=== PATIENT | female | born 1965 ===

== ENCOUNTER 2016-09-10 07:06 | Emergency (ER) | payer OTHER ==
[2016-09-10 07:16] VITALS: O2SAT 98
[2016-09-10 07:17] VITALS: BMI 28.8
--- NOTE | 2016-09-10 08:22 | ED PDOC ---
HPI: General Adult Time Seen by Provider: 09/10/16 07:39 Chief Complaint (Nursing): Back Pain Chief Complaint (Provider): back pain History Per: Patient History/Exam Limitations: no limitations Additional Complaint(s): 51yo [place]/ [place] [facility] [place] initially complaining of pain consistent with previous hemorrhoid for 1 week. Patient then shows an Rx from early August 2016 for outpatient lumbar XRs and is requesting MRI. Past Medical History Reviewed: Historical Data, Nursing Documentation, Vital Signs Vital Signs: Last Vital Signs Temp 97.9 F 09/10/16 12:30 Pulse 75 09/10/16 12:30 Resp 14 09/10/16 12:30 BP 122/74 09/10/16 12:30 Pulse Ox 98 09/10/16 16:26 - Medical History PMH: Asthma, Diabetes Denies: Chronic Kidney Disease - Surgical History Surgical History: Appendectomy Other surgeries: hemorrhoidectomy - Family History Family History: States: Unknown Family Hx - Social History Current smoker - smoking cessation education provided: No Drugs: Denies - Immunization History Hx Tetanus Toxoid Vaccination: No Hx Influenza Vaccination: No Hx Pneumococcal Vaccination: No - Home Medications Home Medications: Ambulatory Orders Medication Instructions Recorded MetFORMIN 500 mg PO BID 04/30/13 Vitamin D2 2,000 iu PO DAILY 04/30/13 Naproxen [Naprosyn] 500 mg PO BID PRN #20 tablet 11/21/15 Cyclobenzaprine [Cyclobenzaprine 10 mg PO BID #15 tab 03/07/16 HCl] Albuterol HFA [Ventolin HFA 90 1 - 2 puff IH Q4H PRN #1 bottle 04/01/16 mcg/actuation (8 g)] Docusate Sodium [Colace] 100 mg PO BID PRN #10 capsule 09/10/16 - Allergies Allergies/Adverse Reactions: Allergies Allergy/AdvReac Type Severity Reaction Status Date / Time acetaminophen [From Tylenol] Allergy RASH Verified 03/06/16 16:54 Penicillins Allergy RASH Verified 03/06/16 16:54 Review of Systems ROS Statement: Except As Marked, All Systems Reviewed And Found Negative Gastrointestinal: Positive for: Constipation Musculoskeletal: Positive for: Back Pain Physical Exam - Reviewed Nursing Documentation Reviewed: Yes Vital Signs Reviewed: Yes - Physical Exam Appears: Positive for: Well, Non-toxic, No Acute Distress Head Exam: Positive for: ATRAUMATIC, NORMAL INSPECTION, NORMOCEPHALIC Skin: Positive for: Warm, Dry Eye Exam: Positive for: EOMI, PERRL Cardiovascular/Chest: Positive for: Regular Rate, Rhythm Respiratory: Positive for: Normal Breath Sounds. Negative for: Rales, Rhonchi, Wheezing Back: Negative for: L CVA Tenderness, R CVA Tenderness, Vertebral Tenderness Rectal: Positive for: Normal Exam, Other (RN Anna Barragan present as turbine engineer. ). Negative for: Hemorrhoids Extremity: Positive for: Normal ROM - ECG O2 Sat by Pulse Oximetry: 98 (rA) Pulse Ox Interpretation: Normal Medical Decision Making Medical Decision Makin: explained MRI cannot be done through the ED in non-emergent circumstances. XR Lumbar Spine ordered. 0900 motrin given for discomfort 1100 pepcid given 1300 XR Lumbar Spine IMPRESSION: No acute fractures. discharge pt feels better now, ambulating without difficulity patient stable for discharge. xr results explained to patient. follow up given. Disposition - Clinical Impression Clinical Impression: Back pain, Constipation - Patient ED Disposition Is Patient to be Admitted: No Counseled Patient/Family Regarding: Studies Performed, Diagnosis, Need For Followup - Disposition Referrals: [facility] [Outside] [facility] [Outside] Disposition: Routine/Home Disposition Time: 10:45 Condition: IMPROVED Additional Instructions: follow up with your primary doctor in 1-2 days return to the ED with any worsening or concerning symptoms. Prescriptions: Docusate Sodium [Colace] 100 mg PO BID PRN #10 capsule PRN Reason: Constipation Instructions: Constipation (ED), Back Pain (ED) Print Language: SOUTH KOREAN Additional Comments - Additional Comments Additional Comments: Scribe Attestation: Documented by Tyson Sr acting as a scribe for Danielle Eubanks MD. Provider Scribe Attestation: All medical record entries made by the Scribe were at my direction and personally dictated by me. I have reviewed the chart and agree that the record accurately reflects my personal performance of the history, physical exam, medical decision making, and the department course for this patient. I have also personally directed, reviewed, and agree with the discharge instructions and disposition.
--- NOTE | 2016-09-10 12:37 | RAD ---
PROCEDURE: Lumbar spine 09/10/2016 HISTORY: back pain COMPARISON: Comparison made with prior study 03/07/2016 FINDINGS: BONES: No acute compression fractures nor retropulsed fragments. DISC SPACES: Disc space heights are relatively maintained. Tiny marginal anterior osteophyte formation seen at several levels. OTHER FINDINGS: None. IMPRESSION: No acute fractures. Suicidal wafer abuts a web-like
[2016-09-10 13:10] VITALS: BP 122/74; PULSE 75; RESP 14; TEMP 97.9
== END 2016-09-10 13:07 | disposition home or self-care (01) ==
LOC: H.ER 07:06
DX: K59.00 Constipation, unspecified (principal); M54.9 Dorsalgia, unspecified; E11.9 Type 2 diabetes mellitus without complications; J45.909 Unspecified asthma, uncomplicated; Z79.84 Long term (current) use of oral hypoglycemic drugs; Z88.0 Allergy status to penicillin

== ENCOUNTER 2017-11-15 09:09 | Observation (INO) | payer OTHER, SELFPAY ==
[2017-11-15 09:09] VITALS: BMI 28.8
[2017-11-15] MEDS ORDERED: Sodium Chloride 0.9% 1,000 ML IV STA (10:03)
[2017-11-15 10:12] LABS: BASO % 0.2 % (0.0-2.0); EOS % 0.4 % (0.0-4.0); HEMOGLOBIN 14.6 g/dL (12.0-16.0); LYMPH # 1.4 K/uL (1.0-4.3); LYMPH % 11.7 % (20.0-40.0); MEAN CELL VOLUME 84.6 fl (81.0-99.0); MEAN CORPUSCULAR HGB CONC 33.1 g/dL (33.0-37.0); MEAN PLATELET VOLUME 9.1 fl (7.2-11.7); MONO # 0.1 K/uL (0.0-0.8); MONO % 1.1 % (0.0-10.0); NEUT # 10.6 K/uL (1.8-7.0); NEUT % 86.6 % (50.0-75.0); NRBC % 0.1 % (0.0-0.0); RBC 5.21 Mil/uL (3.80-5.20); RED CELL DISTRIBUTION WIDTH 13.5 % (11.5-14.5); WHITE BLOOD COUNT 12.2 K/uL (4.8-10.8)
[2017-11-15 10:25] LABS: ALB/GLOB RATIO 1.4 (1.0-2.1); ALBUMIN 4.5 g/dL (3.5-5.0); ALT/SGPT 102 U/L (9-52); AST/SGOT 49 U/L (14-36); BLOOD UREA NITROGEN 14 mg/dl (7-17); CALCIUM 9.3 mg/dL (8.4-10.2); GFR AFRICAN-AMERICAN > 60; GFR NON-AFRICAN AMERICAN > 60; LIPASE 193 U/L (23-300)
--- NOTE | 2017-11-15 10:28 | ED PDOC ---
HPI: Abdomen Time Seen by Provider: 11/15/17 09:18 Chief Complaint (Nursing): Abdominal Pain Chief Complaint (Provider): Abdominal Pain History Per: Patient History/Exam Limitations: no limitations Onset/Duration Of Symptoms: Days Current Symptoms Are (Timing): Still Present Location Of Pain/Discomfort: RUQ Quality Of Discomfort: "Pain" Associated Symptoms: Chills, Nausea, Vomiting. denies: Fever, Diarrhea, Chest Pain Additional Complaint(s): 52 year old female presents to the ED for an evaluation of abdominal pain. Reports she has pain in the right upper quadrant. She took Tylenol without any relief. Also has chills, nausea and 3 episodes of non-bloody vomiting. She had an appendectomy 25 years ago. Denies fever, cough, diarrhea and shortness of breath. PMD: [facility] Past Medical History Reviewed: Historical Data, Nursing Documentation, Vital Signs Vital Signs: Last Vital Signs Temp 98.9 F 11/15/17 12:33 Pulse 85 11/15/17 12:33 Resp 19 11/15/17 12:33 BP 106/56 L 11/15/17 12:33 Pulse Ox 96 11/15/17 12:33 - Medical History PMH: Asthma, Diabetes Denies: Chronic Kidney Disease - Surgical History Surgical History: Appendectomy - Family History Family History: States: Unknown Family Hx - Immunization History Hx Tetanus Toxoid Vaccination: No Hx Influenza Vaccination: No Hx Pneumococcal Vaccination: No - Home Medications Home Medications: Ambulatory Orders Medication Instructions Recorded MetFORMIN 500 mg PO BID 04/30/13 Vitamin D2 2,000 iu PO DAILY 04/30/13 Naproxen [Naprosyn] 500 mg PO BID PRN #20 tablet 11/21/15 Cyclobenzaprine [Cyclobenzaprine 10 mg PO BID #15 tab 03/07/16 HCl] Albuterol HFA [Ventolin HFA 90 1 - 2 puff IH Q4H PRN #1 bottle 04/01/16 mcg/actuation (8 g)] Docusate Sodium [Colace] 100 mg PO BID PRN #10 capsule 09/10/16 - Allergies Allergies/Adverse Reactions: Allergies Allergy/AdvReac Type Severity Reaction Status Date / Time acetaminophen [From Tylenol] Allergy RASH Verified 03/06/16 16:54 Penicillins Allergy RASH Verified 03/06/16 16:54 Review of Systems ROS Statement: Except As Marked, All Systems Reviewed And Found Negative Constitutional: Positive for: Chills. Negative for: Fever Cardiovascular: Negative for: Chest Pain Respiratory: Negative for: Cough, Shortness of Breath Gastrointestinal: Positive for: Nausea, Vomiting, Abdominal Pain. Negative for : Diarrhea Physical Exam - Reviewed Nursing Documentation Reviewed: Yes Vital Signs Reviewed: Yes - Physical Exam Appears: Positive for: Non-toxic, In Acute Distress Head Exam: Positive for: ATRAUMATIC, NORMAL INSPECTION, NORMOCEPHALIC Skin: Positive for: Normal Color, Warm, Dry Eye Exam: Positive for: Normal appearance, EOMI, PERRL ENT: Positive for: Normal ENT Inspection Neck: Positive for: Normal, Painless ROM, Supple. Negative for: Decreased ROM Cardiovascular/Chest: Positive for: Regular Rate, Rhythm. Negative for: Murmur Respiratory: Positive for: Normal Breath Sounds. Negative for: Decreased Breath Sounds, Wheezing, Respiratory Distress Gastrointestinal/Abdominal: Positive for: Tenderness (RUQ) Back: Positive for: Normal Inspection. Negative for: L CVA Tenderness, R CVA Tenderness Extremity: Positive for: Normal ROM. Negative for: Tenderness, Pedal Edema, Deformity Neurologic/Psych: Positive for: Alert, Oriented (x3). Negative for: Motor/ Sensory Deficits - Laboratory Results Result Diagrams: 11/15/17 09:45 11/15/17 09:45 - ECG O2 Sat by Pulse Oximetry: 98 (RA) Pulse Ox Interpretation: Normal Medical Decision Making Medical Decision Making: Time: 944 Initial Impression: abdominal pain, UTI Initial Plan: --Lipase --CMP --ED Urine Dipstick --CBC w/ Differential --Morphine 2 mg --Normal Saline 1000mls/hr --Pepcid 20mg --Zofran 4mg --IV Insertion --Abdomen Complete [US] --Reevaluation Time: 1200 Sonographic evaluation of the abdomen. FINDINGS: LIVER: Measures 16.6 cm. Diffusely increased echogenicity of the liver parenchyma likely indicates hepatic steatosis. A small lucency abutting the gallbladder fossa at the right lobe measure 1.7 x 1.1 x 1.9 cm may represent focal fatty sparing. Follow-up MRI without contrast should be performed on elective basis to further evaluate this finding. No intrahepatic biliary dilatation appreciable. GALLBLADDER: Moderate distention identified without cholelithiasis, mural thickening or pericholecystic fluid collection. However, there is a reported positive sonographic Hopkins sign. COMMON BILE DUCT: Measures 4.8 mm. No stones. No dilatation. PANCREAS: Unremarkable as visualized. No mass. No ductal dilatation. RIGHT KIDNEY: Measures 12.0 x 5.5 x 4.4cm. Normal echogenicity. No calculus, mass, or hydronephrosis. LEFT KIDNEY: Measures 9.2 x 4.9 x 4.7cm. Normal echogenicity. No calculus, mass, or hydronephrosis. SPLEEN: Normal in size and contour. No mass. AORTA: No aneurysmal dilatation. IVC: Unremarkable. OTHER FINDINGS: None. IMPRESSION: There is likely hepatic steatosis throughout the liver. 1.9 cm lucency adjacent to the gallbladder fossa may reflect focal fatty sparing. Follow-up MRI without contrast is recommended for better characterization of this finding as this low echogenicity lesion is not excluded. The remainder the examination is remarkable for a moderately distended gallbladder with positive sonographic Hopkins sign but no cholelithiasis, mural thickening or pericholecystic fluid collection. Clinically correlate further. Time: 1500 Patient signed out to Dr. Josue pending reevaluation and disposition. Scribe Attestation: Documented by Sebastian Jo, acting as a scribe for Paulette Hugo MD Provider Scribe Attestation: All medical record entries made by the Scribe were at my direction and personally dictated by me. I have reviewed the chart and agree that the record accurately reflects my personal performance of the history, physical exam, medical decision making, and the department course for this patient. I have also personally directed, reviewed, and agree with the discharge instructions and disposition. Disposition - Disposition Referrals: Non [facility] Provider, [Primary Care Provider] - Disposition: Transfer of Care Disposition Time: 15:00 Condition: STABLE Forms: [facility] (Irish) Patient Signed Over To: Grace Josue (reevaluation and disposition )
--- NOTE | 2017-11-15 12:02 | US ---
Date of service: 11/15/2017 HISTORY: [id number],n,v; [id number] COMPARISON: And pelvis CT without contrast 06/13/2015. TECHNIQUE: Sonographic evaluation of the abdomen. FINDINGS: LIVER: Measures 16.6 cm. Diffusely increased echogenicity of the liver parenchyma likely indicates hepatic steatosis. A small lucency abutting the gallbladder fossa at the right lobe measure 1.7 x 1.1 x 1.9 cm may represent focal fatty sparing. Follow-up MRI without contrast should be performed on elective basis to further evaluate this finding. No intrahepatic biliary dilatation appreciable. GALLBLADDER: Moderate distention identified without cholelithiasis, mural thickening or pericholecystic fluid collection. However, there is a reported positive sonographic Hopkins sign. COMMON BILE DUCT: Measures 4.8 mm. No stones. No dilatation. PANCREAS: Unremarkable as visualized. No mass. No ductal dilatation. RIGHT KIDNEY: Measures 12.0 x 5.5 x 4.4cm. Normal echogenicity. No calculus, mass, or hydronephrosis. LEFT KIDNEY: Measures 9.2 x 4.9 x 4.7cm. Normal echogenicity. No calculus, mass, or hydronephrosis. SPLEEN: Normal in size and contour. No mass. AORTA: No aneurysmal dilatation. IVC: Unremarkable. OTHER FINDINGS: None. IMPRESSION: There is likely hepatic steatosis throughout the liver. 1.9 cm lucency adjacent to the gallbladder fossa may reflect focal fatty sparing. Follow-up MRI without contrast is recommended for better characterization of this finding as this low echogenicity lesion is not excluded. The remainder the examination is remarkable for a moderately distended gallbladder with positive sonographic Hopkins sign but no cholelithiasis, mural thickening or pericholecystic fluid collection. Clinically correlate further.
--- NOTE | 2017-11-15 15:11 | ED PDOC ---
- Laboratory Results Result Diagrams: 11/15/17 09:45 11/15/17 09:45 - ECG O2 Sat by Pulse Oximetry: 98 (RA) Pulse Ox Interpretation: Normal Medical Decision Making Medical Decision Making: Time: 1500 Patient endorsed to me by Dr. Hugo. Abd pain and US equivocal for cholecystitis. pending surgery evaluation and final ER disposition [address] Plata Surgery oncall, pt to be hospitalized for continued observation. DW Dr Hillman Hospitalist Scribe Attestation: Documented by Sebastian Jo, acting as a scribe for Grace Josue MD Provider Scribe Attestation: All medical record entries made by the Scribe were at my direction and personally dictated by me. I have reviewed the chart and agree that the record accurately reflects my personal performance of the history, physical exam, medical decision making, and the department course for this patient. I have also personally directed, reviewed, and agree with the discharge instructions and disposition. Disposition - Clinical Impression Clinical Impression: Abdominal pain - POA Present On Arrival: None - Disposition Disposition: Hospitalized as Observation Patient Disposition Time: 16:00 Condition: FAIR
[2017-11-15] MEDS ORDERED: Lactated Ringer's 1,000 ML IV SCH (16:45)
--- NOTE | 2017-11-15 16:58 | CP.PCM.CON ---
<Doris Alejandro - Last Filed: 11/15/17 16:55> History of Present Illness - History of Present Illness History of Present Illness: General surgery consult note for Dr. Nell Alejandro, PGY-2 Pt S & E at bedside at 1415 52F w/PMH sig for hx of pelvic pain and abnormal vaginal bleeding, hx hemorrhoids, gastritis, constipation, asthma, DM consulted for RUQ/epigastric ab pain x 1 day. Pt reports onset of RUQ/epigastric abdominal pain after eating a quesadilla with cheese & rice for dinner. Pain is constant, severe. Admits to nausea, emesis x 5 (nb, nb, clear liquid), diarrhea x 4 (liquid) with bright red blood per rectum, headache, chills, dizziness, weakness, fatigue, tingling of her hands and feet (chronic), dsyuria. Admits to one episode of the same a week ago also after ingestion of cheese. Denies fever, urinary frequency, hematuria, chest pain, SOB, recent URI illness, sore throat, other complaints. In ED- Ab U/S w/1.9 cm luceny adj to GB fossa- focal fatty sparing, moderately distended GB w/+ sonographic Hopkins sign, no cholelithiasis, mural thickening, or pericholecystic fluid collection. Afebrile, leukocytosis of 12.2. Slightly elevated LFTs, but T bili WNL. PMH: Hx of pelvic pain and abnormal vaginal bleeding, hx hemorrhoids, gastritis , constipation, asthma, DM PSH: Hemmorrhoidectomy (07/2016), All: PCN, acetaminophen SH: Denies ETOH, tobacco or illicit drug use PMD: [facility] Review of Systems - Review of Systems All systems: reviewed and no additional remarkable complaints except - Constitutional Constitutional: Chills, Headache. absent: Fever - EENT Eyes: absent: Change in Vision Ears: Dizziness Nose/Mouth/Throat: absent: Sore Throat - Cardiovascular Cardiovascular: absent: Chest Pain - Respiratory Respiratory: absent: Cough - Gastrointestinal Gastrointestinal: Abdominal Pain, Change in Bowel Habits, Change in Stool Character, Diarrhea, Hematochezia, Nausea, Vomiting. absent: Constipation - Genitourinary Genitourinary: Dysuria. absent: Change in Urinary Stream, Flank Pain - Integumentary Integumentary: absent: Rash - Neurological Neurological: Weakness - Endocrine Endocrine: Fatigue Past Patient History - Infectious Disease Hx of Infectious Diseases: None - Past Medical History & Family History Past Medical History?: Yes - Past Social History Smoking Status: Never Smoked - CARDIAC Hx Cardiac Disorders: No - PULMONARY Hx Asthma: Yes - NEUROLOGICAL Hx Neurological Disorder: No - HEENT Hx HEENT Problems: No - RENAL Hx Chronic Kidney Disease: No - ENDOCRINE/METABOLIC Hx Endocrine Disorders: Yes Hx Diabetes Mellitus Type 2: Yes - HEMATOLOGICAL/ONCOLOGICAL Hx Blood Disorders: No - INTEGUMENTARY Hx Dermatological Problems: No - MUSCULOSKELETAL/RHEUMATOLOGICAL Hx Musculoskeletal Disorders: No - GASTROINTESTINAL Hx Gastrointestinal Disorders: No - GENITOURINARY/GYNECOLOGICAL Hx Genitourinary Disorders: No - PSYCHIATRIC Hx Psychophysiologic Disorder: No Hx Emotional Abuse: No Hx Physical Abuse: No Hx Substance Use: No - SURGICAL HISTORY Hx Appendectomy: Yes - ANESTHESIA Hx Anesthesia: Yes Hx Anesthesia Reactions: No Hx Malignant Hyperthermia: No Meds Allergies/Adverse Reactions: Allergies Allergy/AdvReac Type Severity Reaction Status Date / Time acetaminophen [From Tylenol] Allergy RASH Verified 03/06/16 16:54 Penicillins Allergy RASH Verified 03/06/16 16:54 - Medications Medications: Current Medications Lactated Ringer's (Lactated Ringer's) 1,000 mls @ 100 mls/hr IV .Q10H RAVIN Ciprofloxacin (Cipro 400mg/200ml Dsw) 400 mg in 200 mls @ 200 mls/hr IVPB Q12 RAVIN PRN Reason: Protocol Metronidazole (Flagyl 500mg/100ml Ns) 100 mls @ 100 mls/hr IVPB Q12 RAVIN PRN Reason: Protocol Morphine Sulfate (Morphine) 4 mg IVP Q4 PRN PRN Reason: Pain, moderate (4-7) Ondansetron HCl (Zofran Inj) 4 mg IVP Q6 PRN PRN Reason: Nausea/Vomiting Physical Exam - Constitutional Appears: Non-toxic, No Acute Distress - Head Exam Head Exam: ATRAUMATIC, NORMAL INSPECTION, NORMOCEPHALIC - Eye Exam Eye Exam: EOMI, Normal appearance - ENT Exam ENT Exam: Mucous Membranes Moist, Normal Exam - Neck Exam Neck exam: Positive for: Full Rom, Normal Inspection - Respiratory Exam Respiratory Exam: Clear to Auscultation Bilateral, NORMAL BREATHING PATTERN. absent: Accessory Muscle Use, Chest Wall Tenderness, Rales, Rhonchi, Wheezes, Respiratory Distress - Cardiovascular Exam Cardiovascular Exam: REGULAR RHYTHM, +S1, +S2 - GI/Abdominal Exam GI & Abdominal Exam: Normal Bowel Sounds, Soft, Tenderness (epigastric, RUQ). absent: Distended, Firm, Guarding - Rectal Exam Rectal Exam: Hemorrhoids. absent: NORMAL INSPECTION Additional comments: light pink tinged mucus from rectum Palpable hard [place] in recum non tender no palpable hemmorhoids - Extremities Exam Extremities exam: Positive for: normal inspection - Neurological Exam Neurological exam: Alert, CN II-XII Intact, Oriented x3 - Psychiatric Exam Psychiatric exam: Normal Affect, Normal Mood - Skin Skin Exam: Dry, Intact, Normal Color, Warm Results - Vital Signs Recent Vital Signs: Last Vital Signs Temp 98.9 F 11/15/17 12:33 Pulse 85 11/15/17 12:33 Resp 19 11/15/17 12:33 BP 106/56 L 11/15/17 12:33 Pulse Ox 98 11/15/17 15:11 - Labs Result Diagrams: 11/15/17 09:45 11/15/17 09:45 Labs: Laboratory Results - last 24 hr 11/15/17 11/15/17 11/15/17 09:28 09:45 09:45 WBC 12.2 H D RBC 5.21 H Hgb 14.6 D Hct 44.1 MCV 84.6 MCH 28.0 MCHC 33.1 RDW 13.5 Plt Count 230 MPV 9.1 Neut % (Auto) 86.6 H Lymph % (Auto) 11.7 L Burt % (Auto) 1.1 Eos % (Auto) 0.4 Baso % (Auto) 0.2 Neut # (Auto) 10.6 H Lymph # (Auto) 1.4 Burt # (Auto) 0.1 Eos # (Auto) 0.0 Baso # (Auto) 0.0 Sodium 138 Potassium 3.8 Chloride 102 Carbon Dioxide 22 Anion Gap 18 BUN 14 Creatinine 0.5 L Est GFR ( Amer) > 60 Est GFR (Non-Af Amer) > 60 POC Glucose (mg/dL) 215 H Random Glucose 249 H Calcium 9.3 Total Bilirubin 0.4 AST 49 H D ALT 102 H D Alkaline Phosphatase 146 H D Total Protein 7.7 Albumin 4.5 Globulin 3.1 Albumin/Globulin Ratio 1.4 Lipase 193 Stool Occult Blood 11/15/17 11/15/17 15:00 16:40 WBC RBC Hgb Hct MCV MCH MCHC RDW Plt Count MPV Neut % (Auto) Lymph % (Auto) Burt % (Auto) Eos % (Auto) Baso % (Auto) Neut # (Auto) Lymph # (Auto) Burt # (Auto) Eos # (Auto) Baso # (Auto) Sodium Potassium Chloride Carbon Dioxide Anion Gap BUN Creatinine Est GFR ( Amer) Est GFR (Non-Af Amer) POC Glucose (mg/dL) 218 H Random Glucose Calcium Total Bilirubin AST ALT Alkaline Phosphatase Total Protein Albumin Globulin Albumin/Globulin Ratio Lipase Stool Occult Blood Positive H Assessment & Plan - Assessment and Plan (Free Text) Assessment: 52F w/RUQ/epigastric abdominal pain, N & V, diarrhea Plan: NPO IVF Abx Pain control FU HIDA FU U/A FU Urine cx Recommend Hgb A1c Admit to medicine DW attending Flavia, PGY-2 - Date & Time Date: 11/15/17 Time: 16:56 <Terell Plata - Last Filed: 11/16/17 18:36> Results - Vital Signs Recent Vital Signs: Last Vital Signs Temp 97.9 F 11/16/17 09:00 Pulse 68 11/16/17 09:00 Resp 20 11/16/17 09:00 BP 98/62 L 11/16/17 09:00 Pulse Ox 68 L 11/16/17 09:00 - Labs Result Diagrams: 11/16/17 05:30 11/16/17 05:30 Labs: Laboratory Results - last 24 hr 11/15/17 11/16/17 11/16/17 09:45 05:30 05:30 WBC 6.2 RBC 4.77 Hgb 13.2 Hct 40.0 MCV 83.9 MCH 27.8 MCHC 33.1 RDW 13.5 Plt Count 214 MPV 9.1 Neut % (Auto) 63.6 Lymph % (Auto) 26.4 Burt % (Auto) 7.4 Eos % (Auto) 2.2 Baso % (Auto) 0.4 Neut # (Auto) 4.0 Lymph # (Auto) 1.6 Burt # (Auto) 0.5 Eos # (Auto) 0.1 Baso # (Auto) 0.0 Sodium 138 Potassium 4.1 Chloride 103 Carbon Dioxide 26 Anion Gap 13 BUN 9 Creatinine 0.5 L Est GFR ( Amer) > 60 Est GFR (Non-Af Amer) > 60 Random Glucose 281 H Calcium 8.7 Phosphorus 3.5 Magnesium 1.8 Total Bilirubin 0.6 GGT 23 AST 63 H D ALT 92 H Alkaline Phosphatase 91 Total Protein 6.4 Albumin 3.6 Globulin 2.8 Albumin/Globulin Ratio 1.3 Assessment & Plan - Assessment and Plan (Free Text) Plan: I personally saw and examined the patient with the resident staff and agree with the above assessment and plan. I personally reviewed the available diagnostic images and imaging reports. Colicky like pain without evidence of gallstones on US, equivocal for cholecystitis. It is possible she may small stones or sludge. Macedonian interpretation provided by housestaff Ros Dubon. Patient states she really does not want surgery right now and understands there is no clear indication for such but willing to be admitted and worked up further. Rec HIDA scan and above plan
--- NOTE | 2017-11-15 17:44 | CP.PCM.HP ---
History of Present Illness - History of Present Illness History of Present Illness: CC: abdominal pain HPI: 52F PMH asthma, DM, hemorrhoids presents with one day history of severe, constant RUQ abdominal pain associated with nausea and NBNB emesis and diarrhea after eating dinner. Abd US showed moderately distended gallbladder without mural thickening, stones, or pericholecystic fluid. Normal TBili, mildly elevated transaminases, + murphys on exam. Pt seen by surgery in ED, for HIDA. WBC 12K without bands, afebrile. NPO, maintenance fluids D5 1/2 NS + 20 KCl. Repeat labs in AM. Cipro/Flagyl 2/2 PCN allergy. ROS per HPI all other systems reviewed and neg PMSH: asthma, DM, hemorrhoids, appendectomy, hemorrhoid sx FH: DM, mother and father SH: Denies ETOH, tobacco, IVDU Allergies: PCN, acetaminophen Present on Admission - Present on Admission Any Indicators Present on Admission: No Past Patient History - Infectious Disease Hx of Infectious Diseases: None - Past Medical History & Family History Past Medical History?: Yes - Past Social History Smoking Status: Never Smoked - CARDIAC Hx Cardiac Disorders: No - PULMONARY Hx Asthma: Yes - NEUROLOGICAL Hx Neurological Disorder: No - HEENT Hx HEENT Problems: No - RENAL Hx Chronic Kidney Disease: No - ENDOCRINE/METABOLIC Hx Endocrine Disorders: Yes Hx Diabetes Mellitus Type 2: Yes - HEMATOLOGICAL/ONCOLOGICAL Hx Blood Disorders: No - INTEGUMENTARY Hx Dermatological Problems: No - MUSCULOSKELETAL/RHEUMATOLOGICAL Hx Musculoskeletal Disorders: No - GASTROINTESTINAL Hx Gastrointestinal Disorders: No - GENITOURINARY/GYNECOLOGICAL Hx Genitourinary Disorders: No - PSYCHIATRIC Hx Psychophysiologic Disorder: No Hx Emotional Abuse: No Hx Physical Abuse: No Hx Substance Use: No - SURGICAL HISTORY Hx Appendectomy: Yes - ANESTHESIA Hx Anesthesia: Yes Hx Anesthesia Reactions: No Hx Malignant Hyperthermia: No Meds Allergies/Adverse Reactions: Allergies Allergy/AdvReac Type Severity Reaction Status Date / Time acetaminophen [From Tylenol] Allergy RASH Verified 03/06/16 16:54 Penicillins Allergy RASH Verified 03/06/16 16:54 Physical Exam - Constitutional Additional comments: Vitals Reviewed GEN: WDWN, alert, cooperative HEENT: NCAT, PERRL, EOMI HEART: RRR, +S1S2, NO MRG LUNG: CTAB, NO WRR ABD: soft, +murphys, ND, No HSM, No masses EXT: normal pedal pulses, normal capillary refill NEURO: awake, alert, no focal deficits SKIN: warm, dry PSYCH: normal mood, normal affect Results - Vital Signs Recent Vital Signs: Last Vital Signs Temp 99.2 F 11/15/17 16:58 Pulse 81 11/15/17 16:58 Resp 18 11/15/17 16:58 BP 128/82 11/15/17 16:58 Pulse Ox 96 11/15/17 16:58 - Labs Result Diagrams: 11/15/17 09:45 11/15/17 09:45 Labs: Laboratory Results - last 24 hr 11/15/17 11/15/17 11/15/17 09:28 09:45 09:45 WBC 12.2 H D RBC 5.21 H Hgb 14.6 D Hct 44.1 MCV 84.6 MCH 28.0 MCHC 33.1 RDW 13.5 Plt Count 230 MPV 9.1 Neut % (Auto) 86.6 H Lymph % (Auto) 11.7 L [place] % (Auto) 1.1 Eos % (Auto) 0.4 Baso % (Auto) 0.2 Neut # (Auto) 10.6 H Lymph # (Auto) 1.4 [place] # (Auto) 0.1 Eos # (Auto) 0.0 Baso # (Auto) 0.0 Sodium 138 Potassium 3.8 Chloride 102 Carbon Dioxide 22 Anion Gap 18 BUN 14 Creatinine 0.5 L Est GFR ( Amer) > 60 Est GFR (Non-Af Amer) > 60 POC Glucose (mg/dL) 215 H Random Glucose 249 H Calcium 9.3 Total Bilirubin 0.4 AST 49 H D ALT 102 H D Alkaline Phosphatase 146 H D Total Protein 7.7 Albumin 4.5 Globulin 3.1 Albumin/Globulin Ratio 1.4 Lipase 193 Stool Occult Blood 11/15/17 11/15/17 15:00 16:40 WBC RBC Hgb Hct MCV MCH MCHC RDW Plt Count MPV Neut % (Auto) Lymph % (Auto) [place] % (Auto) Eos % (Auto) Baso % (Auto) Neut # (Auto) Lymph # (Auto) [place] # (Auto) Eos # (Auto) Baso # (Auto) Sodium Potassium Chloride Carbon Dioxide Anion Gap BUN Creatinine Est GFR ( Amer) Est GFR (Non-Af Amer) POC Glucose (mg/dL) 218 H Random Glucose Calcium Total Bilirubin AST ALT Alkaline Phosphatase Total Protein Albumin Globulin Albumin/Globulin Ratio Lipase Stool Occult Blood Positive H Assessment & Plan - Assessment and Plan (Free Text) Plan: 52F PMH asthma, DM, hemorrhoids presents with one day history of severe, constant RUQ abdominal pain associated with nausea and NBNB emesis and diarrhea after eating dinner. Abd US showed moderately distended gallbladder without mural thickening, stones, or pericholecystic fluid. Normal TBili, mildly elevated transaminases, + murphys on exam. Pt seen by surgery in ED, for HIDA. WBC 12K without bands, afebrile. NPO, maintenance fluids D5 1/2 NS + 20 KCl. Repeat labs in AM. Cipro/Flagyl 2/2 PCN allergy. RUQ pain Mildly elevated transaminases Cholecystitis vs Biliary Colic vs less likely Choledocholithiasis afebrile, WBC 12K, no bands Abd US showed moderately distended gallbladder without mural thickening, stones , or pericholecystic fluid. HIDA pending NPO, maintenance fluids D5 1/2NS+20 KCl @125cc/hr Repeat labs in AM. Cipro/Flagyl 2/2 PCN allergy Surgery consult Dr. Plata ASTHMA bronchodilators PRN DM ISS accuchecks hold PO meds while NPO
[2017-11-15 17:49] LABS: SQUAMOUS EPITHIAL 1 /hpf (0-5); URINE BILIRUBIN NEGATIVE (NEGATIVE); URINE BLOOD NEGATIVE (NEGATIVE); URINE CLARITY CLEAR (Clear); URINE COLOR STRAW (YELLOW); URINE GLUCOSE (UA) >=500 mg/dL (Normal); URINE LEUKOCYTE ESTERASE NEG Leu/uL (Negative); URINE PROTEIN NEGATIVE (NEGATIVE); URINE UROBILINOGEN 0.2-1.0 mg/dL (0.2-1.0)
--- NOTE | 2017-11-15 18:39 | NM ---
Date of service: S1 looks normal 11/15/2017 PROCEDURE: Nuclear Medicine Hepatobiliary Scan HISTORY: r/O biliary colic COMPARISON: November 15, 2017. Abdominal ultrasound TECHNIQUE: 5.3 mCi of technetium 99m Mebrofenin was administered intravenously. Planar images of the abdomen were obtained at 5 min intervals to 60 mins. Delayed images were also obtained. FINDINGS: LIVER: Timely and homogenous uptake. COMMON BILE DUCT: identified at 10 mins. GALLBLADDER: identified at 10 mins. SMALL BOWEL: Identified at 30 mins. IMPRESSION: Normal Hepatobiliary Scan. The cystic duct is patent.
[2017-11-15 20:54] LABS: GAMMA GLUTAMYL TRANSPEPTIDASE 23 U/L (8-78)
[2017-11-15] MEDS ORDERED: Ciprofloxacin 400mg/200ml D5W 400 MG/200 ML BAG IVPB ONE (21:11)
[2017-11-15] MEDS: Ciprofloxacin 400mg/200ml D5W 400 MG/200 ML BAG IVPB SCH (21:18)
[2017-11-15] MEDS: Potassium Ch 20mEq in D5-1/2NS 1,000 ML IV SCH (21:18)
[2017-11-15] MEDS: metroNIDAZOLE 500mg/100ml NS 100 ML IVPB SCH (22:58)
[2017-11-15] MEDS: Insulin Lispro (humaLOG) 100 Units/ml Inj SC SCH (23:01)
[2017-11-16] MEDS: Potassium Ch 20mEq in D5-1/2NS 1,000 ML IV SCH ×2 (01:00→10:41)
[2017-11-16 07:17] LABS: BASO % 0.4 % (0.0-2.0); EOS # 0.1 K/uL (0.0-0.7); EOS % 2.2 % (0.0-4.0); HEMOGLOBIN 13.2 g/dL (12.0-16.0); LYMPH # 1.6 K/uL (1.0-4.3); LYMPH % 26.4 % (20.0-40.0); MEAN CELL VOLUME 83.9 fl (81.0-99.0); MEAN CORPUSCULAR HEMOGLOBIN 27.8 pg (27.0-31.0); MEAN CORPUSCULAR HGB CONC 33.1 g/dL (33.0-37.0); MEAN PLATELET VOLUME 9.1 fl (7.2-11.7); MONO # 0.5 K/uL (0.0-0.8); MONO % 7.4 % (0.0-10.0); NEUT % 63.6 % (50.0-75.0); NRBC % 0.2 % (0.0-0.0); RBC 4.77 Mil/uL (3.80-5.20); RED CELL DISTRIBUTION WIDTH 13.5 % (11.5-14.5); WHITE BLOOD COUNT 6.2 K/uL (4.8-10.8)
[2017-11-16 07:43] LABS: ALB/GLOB RATIO 1.3 (1.0-2.1); ALBUMIN 3.6 g/dL (3.5-5.0); ALT/SGPT 92 U/L (9-52); AST/SGOT 63 U/L (14-36); BLOOD UREA NITROGEN 9 mg/dl (7-17); CALCIUM 8.7 mg/dL (8.4-10.2); GFR AFRICAN-AMERICAN > 60; GFR NON-AFRICAN AMERICAN > 60
--- NOTE | 2017-11-16 07:56 | CP.PCM.PN ---
<Teressa Duke - Last Filed: 11/16/17 08:20> Subjective - Date & Time of Evaluation Date of Evaluation: 11/16/17 Time of Evaluation: 07:10 - Subjective Subjective: General Surgery Dr. Plata Pt S&E @bedside. NAEO. Pt reports resolution of abd pain but c/o rectal pain. denies F/C, N/V. NPO overnight. Objective - Vital Signs/Intake and Output Vital Signs (last 24 hours): Temp Pulse Resp BP Pulse Ox 98 F 64 19 101/64 98 11/16/17 01:41 11/16/17 01:41 11/16/17 01:41 11/16/17 01:41 11/16/17 00:26 - Medications Medications: Current Medications [place] (Tucks) 1 pad TP Q2 PRN PRN Reason: rectal pain Ciprofloxacin (Cipro 400mg/200ml Dsw) 400 mg in 200 mls @ 200 mls/hr IVPB Q12 RAVIN PRN Reason: Protocol Last Admin: 11/15/17 21:18 Dose: 200 mls/hr Metronidazole (Flagyl 500mg/100ml Ns) 100 mls @ 100 mls/hr IVPB Q12 RAVIN PRN Reason: Protocol Last Admin: 11/15/17 22:58 Dose: 100 mls/hr Potassium Chloride/Dextrose/Sod Cl (Potassium Chl 20 Meq In D5-1/2ns) 1,000 mls @ 125 mls/hr IV .Q8H RAVIN Stop: 11/16/17 16:57 Last Admin: 11/16/17 01:00 Dose: Not Given Insulin Human Lispro (Humalog) 0 units SC ACHS RAVIN PRN Reason: Protocol Last Admin: 11/15/17 23:01 Dose: Not Given Morphine Sulfate (Morphine) 4 mg IVP Q4 PRN PRN Reason: Pain, moderate (4-7) Ondansetron HCl (Zofran Inj) 4 mg IVP Q6 PRN PRN Reason: Nausea/Vomiting - Labs Labs: 11/16/17 05:30 11/16/17 05:30 - Constitutional Appears: Non-toxic, No Acute Distress - Head Exam Head Exam: NORMAL INSPECTION - Eye Exam Eye Exam: Normal appearance - ENT Exam ENT Exam: Mucous Membranes Moist - Respiratory Exam Respiratory Exam: NORMAL BREATHING PATTERN. absent: Accessory Muscle Use, Respiratory Distress - Cardiovascular Exam Cardiovascular Exam: REGULAR RHYTHM. absent: Bradycardia, Tachycardia - GI/Abdominal Exam GI & Abdominal Exam: Soft. absent: Distended, Firm, Guarding, Rigid, Tenderness , Rebound - Extremities Exam Extremities Exam: Normal Inspection - Neurological Exam Neurological Exam: Alert, Awake, Oriented x3 - Psychiatric Exam Psychiatric exam: Normal Affect, Normal Mood - Skin Skin Exam: Dry, Intact, Normal Color, Warm Assessment and Plan - Assessment and Plan (Free Text) Assessment: 52 y/o F w/ resolved abd pain, now c/o rectal pain w/ known Hx of hemorrhoids. - ADAT - stool softeners - pain management - sitz baths, tucks pads - OOb to chair/Amb/IS use - pt cleared for discharge to home - f/u outpatient for elective cholecystectomy Pt discussed w/ Dr. Boni Duke DO PGY3 <Terell Plata - Last Filed: 11/16/17 18:46> Objective - Vital Signs/Intake and Output Vital Signs (last 24 hours): Temp Pulse Resp BP Pulse Ox 97.9 F 68 20 98/62 L 68 L 11/16/17 09:00 11/16/17 09:00 11/16/17 09:00 11/16/17 09:00 11/16/17 09:00 - Labs Labs: 11/16/17 05:30 11/16/17 05:30
[2017-11-16 08:28] VITALS: BP 98/62; PULSE 68; RESP 20; TEMP 97.9; O2SAT 68
[2017-11-16] MEDS: Insulin Lispro (humaLOG) 100 Units/ml Inj SC SCH ×2 (09:23→12:31)
[2017-11-16] MEDS ORDERED: GlipiZIDE 5 mg SR Tab PO STA (11:36)
[2017-11-16] MEDS: metroNIDAZOLE 500mg/100ml NS 100 ML IVPB SCH (11:40)
[2017-11-16] MEDS: Ciprofloxacin 400mg/200ml D5W 400 MG/200 ML BAG IVPB SCH (11:40)
--- NOTE | 2017-11-16 12:44 | CP.PCM.DIS ---
Provider - Provider Date of Admission: 11/15/17 16:24 Attending physician: Sonam Hillman DO Primary care physician: Non [facility] Provider Consults: Terrell : Dr Pam Plata Time Spent in preparation of Discharge (in minutes): 35 Diagnosis - Discharge Diagnosis (1) Abnormal LFTs Status: Acute (2) Abdominal pain Status: Acute (3) Gastroenteritis Status: Acute (4) DM type 2 (diabetes mellitus, type 2) Status: Chronic Hospital Course - Lab Results Lab Results: Most Recent Lab Values WBC 6.2 K/uL (4.8-10.8) 11/16/17 05:30 RBC 4.77 Mil/uL (3.80-5.20) 11/16/17 05:30 Hgb 13.2 g/dL (12.0-16.0) 11/16/17 05:30 Hct 40.0 % (34.0-47.0) 11/16/17 05:30 MCV 83.9 fl (81.0-99.0) 11/16/17 05:30 MCH 27.8 pg (27.0-31.0) 11/16/17 05:30 MCHC 33.1 g/dL (33.0-37.0) 11/16/17 05:30 RDW 13.5 % (11.5-14.5) 11/16/17 05:30 Plt Count 214 K/uL (130-400) 11/16/17 05:30 MPV 9.1 fl (7.2-11.7) 11/16/17 05:30 Neut % (Auto) 63.6 % (50.0-75.0) 11/16/17 05:30 Lymph % (Auto) 26.4 % (20.0-40.0) 11/16/17 05:30 [place] % (Auto) 7.4 % (0.0-10.0) 11/16/17 05:30 Eos % (Auto) 2.2 % (0.0-4.0) 11/16/17 05:30 Baso % (Auto) 0.4 % (0.0-2.0) 11/16/17 05:30 Neut # (Auto) 4.0 K/uL (1.8-7.0) 11/16/17 05:30 Lymph # (Auto) 1.6 K/uL (1.0-4.3) 11/16/17 05:30 [place] # (Auto) 0.5 K/uL (0.0-0.8) 11/16/17 05:30 Eos # (Auto) 0.1 K/uL (0.0-0.7) 11/16/17 05:30 Baso # (Auto) 0.0 K/uL (0.0-0.2) 11/16/17 05:30 Sodium 138 mmol/l (132-148) 11/16/17 05:30 Potassium 4.1 MMOL/L (3.6-5.0) 11/16/17 05:30 Chloride 103 mmol/L (98-107) 11/16/17 05:30 Carbon Dioxide 26 mmol/L (22-30) 11/16/17 05:30 Anion Gap 13 (10-20) 11/16/17 05:30 BUN 9 mg/dl (7-17) 11/16/17 05:30 Creatinine 0.5 mg/dl (0.7-1.2) L 11/16/17 05:30 Est GFR ( Amer) > 60 11/16/17 05:30 Est GFR (Non-Af Amer) > 60 11/16/17 05:30 POC Glucose (mg/dL) 218 mg/dL (65-110) H 11/15/17 16:40 Random Glucose 281 mg/dL (65-105) H 11/16/17 05:30 Calcium 8.7 mg/dL (8.4-10.2) 11/16/17 05:30 Phosphorus 3.5 mg/dl (2.5-4.5) 11/16/17 05:30 Magnesium 1.8 MG/DL (1.6-2.3) 11/16/17 05:30 Total Bilirubin 0.6 mg/dl (0.2-1.3) 11/16/17 05:30 GGT 23 U/L (8-78) 11/15/17 09:45 AST 63 U/L (14-36) H D 11/16/17 05:30 ALT 92 U/L (9-52) H 11/16/17 05:30 Alkaline Phosphatase 91 U/L (38-126) 11/16/17 05:30 Total Protein 6.4 G/DL (6.3-8.2) 11/16/17 05:30 Albumin 3.6 g/dL (3.5-5.0) 11/16/17 05:30 Globulin 2.8 gm/dL (2.2-3.9) 11/16/17 05:30 Albumin/Globulin Ratio 1.3 (1.0-2.1) 11/16/17 05:30 Lipase 193 U/L (23-300) 11/15/17 09:45 Urine Color Straw (YELLOW) 11/15/17 17:00 Urine Clarity Clear (Clear) 11/15/17 17:00 Urine pH 6.0 (5.0-8.0) 11/15/17 17:00 Ur Specific [place] 1.005 (1.003-1.030) 11/15/17 17:00 Urine Protein Negative mg/dL (NEGATIVE) 11/15/17 17:00 Urine Glucose (UA) >=500 mg/dL (Normal) 11/15/17 17:00 Urine Ketones Negative mg/dL (NEGATIVE) 11/15/17 17:00 Urine Blood Negative (NEGATIVE) 11/15/17 17:00 Urine Nitrate Negative (NEGATIVE) 11/15/17 17:00 Urine Bilirubin Negative (NEGATIVE) 11/15/17 17:00 Urine Urobilinogen 0.2-1.0 mg/dL (0.2-1.0) 11/15/17 17:00 Ur Leukocyte Esterase Neg Anai/uL (Negative) 11/15/17 17:00 Urine RBC (Auto) 1 /hpf (0-3) 11/15/17 17:00 Urine Microscopic WBC 1 /hpf (0-5) 11/15/17 17:00 Ur Squamous Epith Cells 1 /hpf (0-5) 11/15/17 17:00 Stool Occult Blood Positive (NEGATIVE) H 11/15/17 15:00 - Hospital Course Hospital Course: 52F PMH asthma, DM, hemorrhoids presents with one day history of severe, constant RUQ abdominal pain associated with nausea and NBNB emesis and diarrhea after eating dinner. Abd US showed moderately distended gallbladder without mural thickening, stones, or pericholecystic fluid. Normal TBili, mildly elevated transaminases, + murphys on exam. Pt seen by surgery in ED, rec HIDA. WBC 12K without bands, afebrile. NPO, maintenance fluids D5 1/2 NS + 20 KCl. Started on Cipro/Flagyl 2/2 PCN allergy. 1. RUQ pain with Mildly elevated transaminases and Gallbladder Distention Fatty Liver may contribute to abn LFT afebrile, WBC 12K, no bands, abn LFTs Abd US showed moderately distended gallbladder without mural thickening, stones , or pericholecystic fluid. HIDA : normal LFTs improved Surgery consult Dr. Plata- [place] pt for d/c - out pt ff up for Elective Cholecystectomy cont Cipro and Flagyl Pt tolerated Regular diet and her sxs resolved - d/c home 2. Diarrhea and Vomiting , resolved poss Gastroenteritis symptoms resolved on admission unable to do stool work up pt on Cipro and Flagyl 3. ASTHMA, mild intermittent bronchodilators PRN 4. DM type II with Hyperglycemia ISS accuchecks held PO meds while NPO d/c Metformin due to abn LFT cont Amaryl ff up with PMD for further control. Discharge Exam - Head Exam Head Exam: ATRAUMATIC, NORMAL INSPECTION, NORMOCEPHALIC - Eye Exam Eye Exam: EOMI, Normal appearance, PERRL Pupil Exam: NORMAL ACCOMODATION - ENT Exam ENT Exam: Mucous Membranes Moist, Normal External Ear Exam - Neck Exam Neck exam: Full Rom - Respiratory Exam Respiratory Exam: NORMAL BREATHING PATTERN. absent: Rales, Wheezes, Respiratory Distress - Cardiovascular Exam Cardiovascular Exam: REGULAR RHYTHM, +S1, +S2 - GI/Abdominal Exam GI & Abdominal Exam: Normal Bowel Sounds, Soft. absent: Tenderness - Extremities Exam Extremities exam: full ROM, normal capillary refill, pedal pulses present - Back Exam Back exam: FULL ROM. absent: CVA tenderness (L), CVA tenderness (R), vertebral tenderness - Neurological Exam Neurological exam: Alert, CN II-XII Intact, Normal Gait, Oriented x3, Reflexes Normal - Psychiatric Exam Psychiatric exam: Normal Affect, Normal Mood - Skin Skin Exam: Dry, Normal Color, Warm Discharge Plan - Discharge Medications Prescriptions: Ciprofloxacin HCl [Cipro] 500 mg PO BID #14 tablet metroNIDAZOLE [Flagyl] 500 mg PO TID #21 tab - Follow Up Plan Condition: GOOD Disposition: HOME/ ROUTINE Instructions: Acute Abdominal Pain (GEN) Additional Instructions: ff up at the [facility] usama Hold Metformin for now return to ED if abd pain recurs appt with Dr Hammond ( GI) in 1-2 wks ff up Surg clinic for outpt Cholecystectomy Referrals: [facility] [Outside] Non [facility] Provider, [Primary Care Provider] - Terell Plata MD [Staff Provider] -
== END 2017-11-16 14:20 | disposition home or self-care (01) ==
LOC: SUPCPDRO 09:09 → H.ER 09:09 → H.ERHOLD 16:24 → H.MEDSURG1 22:05
PROVIDERS: ADMIT Student in an Organized Health Care Education/Training Program; ATTEND Student in an Organized Health Care Education/Training Program
DX: K76.0 Fatty (change of) liver, not elsewhere classified (principal); N39.0 Urinary tract infection, site not specified; R10.2 Pelvic and perineal pain; K59.00 Constipation, unspecified; Z90.49 Acquired absence of other specified parts of digestive tract; Z88.0 Allergy status to penicillin; K52.9 Noninfective gastroenteritis and colitis, unspecified; E11.65 Type 2 diabetes mellitus with hyperglycemia; K64.9 Unspecified hemorrhoids; J45.20 Mild intermittent asthma, uncomplicated; K82.8 Other specified diseases of gallbladder
CPT/HCPCS: 36415; 76700; 78227; 80053; 81003; 82948; 82977; 83690; 83735; 84100; 85025; 87086; 96361; 96365; 96366; 96367; 96375; 99285; A9537; G0328; G0378; J0744; J2270; J2405; J7030

== ENCOUNTER 2018-08-11 08:30 | Emergency (ER) | payer SELFPAY ==
[2018-08-11 08:33] VITALS: BMI 27.1
[2018-08-11 08:34] VITALS: TEMP 98.2
--- NOTE | 2018-08-11 09:08 | ED PDOC ---
HPI: Headache Time Seen by Provider: 08/11/18 08:40 Chief Complaint (Nursing): Headache Additional Complaint(s): 52 y/o F with a PMHx of DM2 c/o headache that began last night at 8pm. Pain is pressure like, 9/10 intensity, on top of head, constant, radiates to neck pain and left arm, and associated with chidi-oral numbness and heaviness. Pt reports she is talking clearly but not as fast due to chidi-oral heaviness. Pt was not able to eat since last night due to weakness to masticate. No head trauma. No previous episodes. Pt denies fever, chills chest pain, SOB, arm weakness, rash, peripheral edema or Hx of migraines. NIHSS score: 0 PMD: [facility] Allergy: penicillin and Tylenol. (Rash) Meds: Metformin 850mg PO daily, Januvia PO daily, Glimepiride 2mg PO daily, Albuterol inhaler PRN. PMHx: DM2, asthma PSHx: Appendectomy and hemorroidectomy. FFx: DM. SHx: Denies tobacco, alcohol or rec drugs. Past Medical History Vital Signs: Last Vital Signs Temp 98.2 F 08/11/18 08:33 Pulse 64 08/11/18 08:33 Resp 16 08/11/18 08:33 BP 128/94 H 08/11/18 08:33 Pulse Ox 99 08/11/18 08:33 Primary Care Provider: [facility] - Medical History PMH: Asthma, Diabetes Denies: Chronic Kidney Disease - Surgical History Surgical History: Appendectomy - Family History Family History: States: Unknown Family Hx - Immunization History Hx Tetanus Toxoid Vaccination: No Hx Influenza Vaccination: No Hx Pneumococcal Vaccination: No - Home Medications Home Medications: Ambulatory Orders Medication Instructions Recorded Glimepiride [amaRYL] 2 mg PO DAILY 11/15/17 Ciprofloxacin HCl [Cipro] 500 mg PO BID #14 tablet 11/16/17 Docusate [Colace] 100 mg PO BID cap 11/16/17 Witch Lilly [Tucks] 1 pad TP Q2 PRN pad 11/16/17 metroNIDAZOLE [Flagyl] 500 mg PO TID #21 tab 11/16/17 Naproxen 500 mg PO Q12H 7 Days #14 tablet 08/11/18 - Allergies Allergies/Adverse Reactions: Allergies Allergy/AdvReac Type Severity Reaction Status Date / Time acetaminophen [From Tylenol] Allergy RASH Verified 08/11/18 08:52 Penicillins Allergy RASH Verified 08/11/18 08:52 Review of Systems Constitutional: Negative for: Fever, Chills Eyes: Negative for: Pain, Vision Change ENT: Positive for: Mouth Pain. Negative for: Ear Pain, Nose Congestion, Mouth Swelling Cardiovascular: Negative for: Chest Pain, Palpitations Respiratory: Negative for: Cough, Shortness of Breath, Hemoptysis Gastrointestinal: Negative for: Nausea, Vomiting, Abdominal Pain Genitourinary Female: Negative for: Dysuria, Frequency, Hematuria Musculoskeletal: Negative for: Neck Pain, Shoulder Pain, Back Pain Skin: Negative for: Rash Neurological: Positive for: Numbness (perioral and bilateral maxillary area of face.). Negative for: Change in Speech, Confusion, Seizures, Altered Mental Status, Dizziness Psych: Negative for: Anxiety, Depression Physical Exam - Physical Exam Appears: Positive for: No Acute Distress Head Exam: Positive for: ATRAUMATIC, NORMAL INSPECTION, NORMOCEPHALIC Skin: Positive for: Normal Color, Warm Eye Exam: Positive for: EOMI, PERRL. Negative for: Nystagmus, Periorbital swelling ENT: Negative for: Pharyngeal Erythema Neck: Negative for: Normal, Painless ROM Cardiovascular/Chest: Negative for: Regular Rate, Rhythm Respiratory: Negative for: Normal Breath Sounds Gastrointestinal/Abdominal: Positive for: Soft. Negative for: Tenderness, Distended, Guarding, Rebound Extremity: Negative for: Tenderness, Pedal Edema, Calf Tenderness, Swelling Neurological/Psych: Positive for: Awake, Alert, Normal Tone, Oriented, Gait (normal), Cerebellar Tests (unremarkable), internal audit director II-XII (normal), Other (decreased chidi-oral movement while speaking, fascies decreased. ). Negative for: Lethargic, Listless - Laboratory Results Result Diagrams: 08/11/18 09:08 08/11/18 09:08 - ECG O2 Sat by Pulse Oximetry: 99 Medical Decision Making Medical Decision Makin:05 --CBC, CMP, HbA1c, lipid panel, coags ordered --CTA head and neck,CXR and EKG ordered --IV Morphine ordered. 11:10 --Unremarkable CTA of head and neck --Pt still complains of pain, now 8/10. Morphine 2mg and Reglan 10mg ordered. 11:20 --Spoke to Dr Stout, who recommended MRI of Brain and Toradol for pain. 16:10 --Pt previously seen by neurologist, Dr Stout who recommended discharged if normal MRI of Brain. --Pt reports headache now is 5/10 intensity, chidi-oral numbness has improved. 16:30 --MRI Brain unremarkable. --Pt stable, is discharged home with Rx for Naproxen 500mg PO BID --Pt educated on lab results, recommended to f/u with PCP within 1 week. --Pt instructed to return to ER if worsening symptoms adn to f/u with Neurology for further mangement. Disposition - Clinical Impression Clinical Impression: Migraine - Patient ED Disposition Is Patient to be Admitted: No Counseled Patient/Family Regarding: Studies Performed, Need For Followup - Disposition Referrals: Earnest Stout MD [Medical Doctor] - Disposition: Routine/Home Disposition Time: 16:45 Condition: IMPROVED Additional Instructions: F/U with PCP within 1 week. Neurology referral given. If symptoms get worse, return to ED. --De seguimiento con duval doctor primarion en yoly semana. --Dennise leny con especialista de neurologia para mas investigacion. --Si los sintomas empeoran, por favor regresar al salon de emergencias. Prescriptions: Naproxen 500 mg PO Q12H 7 Days #14 tablet Instructions: Migraine Headache (DC), Headache, Adult (DC) Forms: [facility] (Upper Sorbian) Print Language: NEPALI
[2018-08-11 09:29] LABS: BASO % 0.6 % (0.0-2.0); EOS # 0.1 K/uL (0.0-0.7); EOS % 2.2 % (0.0-4.0); HEMOGLOBIN 12.8 g/dL (12.0-16.0); LYMPH # 2.4 K/uL (1.0-4.3); LYMPH % 40.4 % (20.0-40.0); MEAN CELL VOLUME 85.2 fl (81.0-99.0); MEAN CORPUSCULAR HEMOGLOBIN 28.2 pg (27.0-31.0); MEAN CORPUSCULAR HGB CONC 33.2 g/dL (33.0-37.0); MEAN PLATELET VOLUME 8.2 fl (7.2-11.7); MONO # 0.4 K/uL (0.0-0.8); MONO % 7.1 % (0.0-10.0); NEUT # 2.9 K/uL (1.8-7.0); NEUT % 49.7 % (50.0-75.0); NRBC % 0.1 % (0.0-0.0); RBC 4.54 Mil/uL (3.80-5.20); RED CELL DISTRIBUTION WIDTH 13.4 % (11.5-14.5); WHITE BLOOD COUNT 5.9 K/uL (4.8-10.8)
[2018-08-11 09:34] LABS: PROTHROMBIN TIME 11.2 Seconds (9.8-13.1)
[2018-08-11 09:37] LABS: ALB/GLOB RATIO 1.4 (1.0-2.1); ALBUMIN 4.2 g/dL (3.5-5.0); ALT/SGPT 27 U/L (9-52); AST/SGOT 41 U/L (14-36); BLOOD UREA NITROGEN 18 mg/dl (7-17); CALCIUM 9.4 mg/dL (8.4-10.2); GFR NON-AFRICAN AMERICAN > 60; HDL CHOLESTEROL 40 MG/DL (30-70); PARTIAL THROMBOPLASTIN TIME 40.9 Seconds (25.6-37.1)
[2018-08-11 09:48] LABS: LDL CHOLESTEROL 100 mg/dL (0-129)
--- NOTE | 2018-08-11 09:51 | RAD ---
Date of service: 08/11/2018 HISTORY: ACEVEDO COMPARISON: Chest radiographs 04/04/2016. TECHNIQUE: 1 view obtained. FINDINGS: LUNGS: No active pulmonary disease. PLEURA: No significant pleural effusion identified, no pneumothorax apparent. CARDIOVASCULAR: No aortic atherosclerotic calcification present. Normal cardiac size. No pulmonary vascular congestion. OSSEOUS STRUCTURES: No significant abnormalities. VISUALIZED UPPER ABDOMEN: Normal. OTHER FINDINGS: None. IMPRESSION: No interval acute cardiopulmonary disease appreciated.
[2018-08-11] MEDS ORDERED: Sodium Chloride 0.9% 50 ML IV ONE (10:16)
[2018-08-11] MEDS ORDERED: Iodixanol 320 MG/ML 100 ML BOTTLE IV ONE (10:16)
--- NOTE | 2018-08-11 10:58 | CT ---
Date of service: 08/11/2018 PROCEDURE: CT Angiography of the Head and Neck. HISTORY: ACEVEDO, L sided neck pain COMPARISON: None available. TECHNIQUE: CT angiography of the head and neck was performed following intravenous contrast administration. Coronal and sagittal maximum intensity projection reformatted images were generated. Contrast Dose: Visipaque 320, 99 cc Radiation dose: Total exam DLP = 490.43 mGy-cm. This CT exam was performed using one or more of the following dose reduction techniques: Automated exposure control, adjustment of the mA and/or kV according to patient size, and/or use of iterative reconstruction technique. FINDINGS: INTERNAL CEREBRAL ARTERIES: Unremarkable. The skull base, petrous, cavernous and supraclinoid segments are bilaterally widely patent. ANTERIOR CEREBRAL ARTERIES: Unremarkable. A1 and A2 segments are widely patent. Smaller distal branches unremarkable, as visualized. MIDDLE CEREBRAL ARTERIES: Unremarkable. M1 and M2 segments are widely patent. Perisylvian branches grossly symmetric. POSTERIOR CIRCULATION: Basilar Artery: Unremarkable. Distal Vertebral Arteries: Unremarkable. Posterior Cerebral Arteries: Unremarkable. Posterior Inferior Cerebellar Arteries: Unremarkable. NECK CTA: Aortic Arch: Normal three vessel arch identified. Common Carotid arteries: The bilateral common carotid appear widely patent from their origins to their bifurcations with no significant stenosis appreciated. No evidence to suggest common carotid artery dissection. Internal Carotid arteries: No significant stenosis is appreciated throughout the cervical internal carotid artery segments bilaterally and there is no evidence of dissection either. External Carotid arteries: Appear unremarkable bilaterally. Vertebral arteries: The bilateral vertebral arteries appear normal in caliber from their origins to their distal cervical segments. No significant stenosis or definite pattern of dissection. ANEURYSM/ VASCULAR MALFORMATIONS: None. OTHER FINDINGS: None. IMPRESSION: No significant stenosis or large branch occlusion on intracranial CT angiography with CT angiography of the neck also unremarkable, as discussed above. No aneurysm or arteriovascular malformation identified as well.
[2018-08-11 11:55] VITALS: PULSE 55; RESP 18
[2018-08-11 14:33] VITALS: O2SAT 99
[2018-08-11 15:42] LABS: SQUAMOUS EPITHIAL 1 /hpf (0-5); URINE BILIRUBIN NEGATIVE (NEGATIVE); URINE BLOOD NEGATIVE (NEGATIVE); URINE CLARITY CLEAR (Clear); URINE COLOR STRAW (YELLOW); URINE GLUCOSE (UA) NEG (NEGATIVE); URINE LEUKOCYTE ESTERASE NEG Leu/uL (Negative); URINE PROTEIN NEGATIVE (NEGATIVE); URINE UROBILINOGEN 0.2-1.0 mg/dL (0.2-1.0)
--- NOTE | 2018-08-11 16:35 | MRI ---
Date of service: 08/11/2018 PROCEDURE: MRI BRAIN WITHOUT CONTRAST HISTORY: Headache. COMPARISON: None available. TECHNIQUE: Multiplanar, multisequence MR images of the brain were obtained without intravenous contrast enhancement. FINDINGS: HEMORRHAGE: None DWI: No evidence of an acute or early subacute infarction. BRAIN PARENCHYMA: Trace left greater than right centrum semiovale and anterior periventricular white matter signal change are identified likely reflecting minimal chronic microangiopathy. Corpus callosal and remaining white matter signal are within normal limits. Supratentorially compartment is otherwise unremarkable. Posterior fossa is remarkable only for mildly prominent cisterna magna posteriorly. There is no mass effect. Midline brain anatomy is unremarkable. VENTRICLES: Unremarkable. No hydrocephalus. CRANIUM: Unremarkable. ORBITS: Grossly unremarkable. PARANASAL SINUSES/MASTOIDS: Mild mucosal inflammatory changes affect the bilateral ethmoid air cells diffusely. VASCULAR SYSTEM: Skull base flow voids intact. OTHER FINDINGS: None. IMPRESSION: Minimal chronic microangiopathy identified. Note is made of a mildly prominent cisterna magna as well. Intracranial MR examination of the brain is otherwise unremarkable.
[2018-08-11 17:35] VITALS: BP 105/66
--- NOTE | 2018-08-11 19:23 | CARD ---
APPROVED REPORT Date of service: 08/11/2018 EKG Measurement Heart [id number] <Conclusion> Sinus bradycardia Otherwise normal ECG
== END 2018-08-11 17:18 | disposition home or self-care (01) ==
LOC: H.ER 08:30
DX: G43.909 Migraine, unspecified, not intractable, without status migrainosus (principal); E11.51 Type 2 diabetes mellitus with diabetic peripheral angiopathy without gangrene; J45.909 Unspecified asthma, uncomplicated; Z79.84 Long term (current) use of oral hypoglycemic drugs; Z88.0 Allergy status to penicillin; Z88.6 Allergy status to analgesic agent
CPT/HCPCS: 70496; 70498; 70551; 71045; 80053; 80061; 81003; 81025; 82948; 83036; 85025; 85610; 85730; 86850; 86900; 93005; 96374; 96375; 96376; 99285; J2270; J2765; Q9967